=== PATIENT | female | born 1975 | race Caucasian/White ===

== ENCOUNTER 2021-08-16 09:13 | Outpatient (REF) | payer MEDICARE, SELFPAY ==
--- NOTE | ~2021-08-16 | MM_ITS ---
EXAMINATION: MM SCREENING DIGITAL BREAST TOMOSYNTHESIS, BILATERAL CLINICAL INFORMATION: Screening. Asymptomatic. The lifetime risk of breast cancer based on the Tyrer-Cuzick Model is 10%. COMPARISON: Mammography: 06/15/2017, 05/02/2016, 04/17/2016 (baseline) TECHNIQUE: Digital breast tomosynthesis is performed in both the craniocaudal and mediolateral oblique views along with computer-aided detection (CAD). Synthesized 2D images are generated from the tomosynthesis. FINDINGS: There are scattered areas of fibroglandular density (ACR BI-RADS breast composition Category b). There are no significant masses, abnormal calcifications, or other abnormalities. Parenchymal pattern is similar to prior studies. There are no significant changes. MM/MM tomosynthesis screening BI IMPRESSION: No mammographic evidence of malignancy. ASSESSMENT: BI-RADS 1: Negative RECOMMENDATION: Routine annual mammography screening. This patient's information was entered into a reminder system with a target due date for their next mammogram.
== END 2021-08-16 09:14 | disposition home or self-care (01) ==
LOC: HO.MAMMO 09:13
PROVIDERS: PCP Nurse Practitioner Family; Visit Provider Nurse Practitioner Family
DX: Z12.31 Encounter for screening mammogram for malignant neoplasm of breast (principal)
CPT/HCPCS: 77063; 77067

== ENCOUNTER 2022-08-22 09:47 | Outpatient (REF) | payer MEDICARE, SELFPAY ==
--- NOTE | ~2022-08-22 | MM_ITS ---
EXAMINATION: MM SCREENING DIGITAL BREAST TOMOSYNTHESIS, BILATERAL CLINICAL INFORMATION: Screening. Asymptomatic. The lifetime risk of breast cancer based on the Tyrer-Cuzick Model is 11%. COMPARISON: Mammography: 08/16/2021, 06/15/2017, 05/02/2016, 04/17/2016 (baseline). TECHNIQUE: Digital breast tomosynthesis is performed in both the craniocaudal and mediolateral oblique views along with computer-aided detection (CAD). Synthesized 2D images are generated from the tomosynthesis. FINDINGS: There are scattered areas of fibroglandular density (ACR BI-RADS breast composition Category b). There are no significant masses, abnormal calcifications, or other abnormalities. Parenchymal pattern is similar to prior studies. There is no developing density or architectural abnormality. The axilla and skin contours are unremarkable. No significant changes. MM/MM tomosynthesis screening BI IMPRESSION: No mammographic evidence of malignancy. ASSESSMENT: BI-RADS 1: Negative RECOMMENDATION: Routine annual mammography screening. This patient's information was entered into a reminder system with a target due date for their next mammogram.
== END 2022-08-22 09:48 | disposition home or self-care (01) ==
LOC: HO.MAMMO 09:47
PROVIDERS: PCP Nurse Practitioner Family; Visit Provider Nurse Practitioner Family
DX: Z12.31 Encounter for screening mammogram for malignant neoplasm of breast (principal)
CPT/HCPCS: 77063; 77067

== ENCOUNTER 2023-08-24 08:54 | Outpatient (REF) | payer OTHER, SELFPAY | END 2023-08-24 08:55 | disposition home or self-care (01) | LOC: HO.MAMMO 08:54 | PROVIDERS: PCP Nurse Practitioner Family; Visit Provider Nurse Practitioner Family | DX: Z12.31 Encounter for screening mammogram for malignant neoplasm of breast (principal) | CPT/HCPCS: 77063; 77067 ==

== ENCOUNTER → 2023-08-24 09:45 | Outpatient (BNV) | payer OTHER, SELFPAY | PROVIDERS: PCP Nurse Practitioner Family; Visit Provider Radiology Diagnostic Radiology | DX: Z12.31 Encounter for screening mammogram for malignant neoplasm of breast (principal) | CPT/HCPCS: 77063; 77067 ==

== ENCOUNTER 2024-08-27 08:18 | Outpatient (REF) | payer OTHER, SELFPAY ==
--- OUTSIDE RECORDS SUMMARY | 2024-08-27 08:40 | XMS_ITS | Clinical Summary ---
Author Organization [facility] Address [address] [place] [address] Care Team Providers Care Supervisor Prop Making Name Role Phone Maria Elena Bender NP Primary Care Provider [phone] Allergies No known active allergies Medications Medication Sig Dispensed Refills Start Date End Date Status aspirin 81 MG chewable tablet Chew 1 tablet (81 mg total) by mouth daily. 30 tablet 0 08/22/2023 Active atorvastatin (LIPITOR) tablet 80 mg Take 1 tablet (80 mg total) by mouth every evening. 30 tablet 0 08/21/2023 Active Semaglutide, 1 MG/DOSE, (Ozempic, 1 MG/DOSE,) 2 MG/1.5ML SOPN Inject 1 mg under the skin once a week. 0 Active metFORMIN (GLUCOPHAGE) tablet 500 mg Take 2 tablets (1,000 mg total) by mouth 2 (two) times a day with meals. 0 Active Active Problems Problem Noted Date Diagnosed Date Acute stroke due to ischemia 08/19/2023 Social History Tobacco Use Types Packs/Day Years Used Date Smoking Tobacco: Unknown Sex and Gender Information Value Date Recorded Sex Assigned at Female 08/19/2023 6:29 PM EST Gender Identity Not on file Sexual Orientation Not on file Job Start Date Occupation Industry Not on file Not on file Not on file Last Filed Vital Signs Vital Sign Reading Time Taken Comments Blood Pressure 128/83 10/23/2023 1:38 PM EDT Pulse 82 10/23/2023 1:38 PM EDT Temperature 36.3 ??C (97.4 ??F) 08/21/2023 3:00 PM ES T Respiratory Rate 13 10/23/2023 1:38 PM EDT Oxygen Saturation 98% 10/23/2023 1:38 PM EDT Inhaled Oxygen Concentration - - Weight 73.9 kg (163 lb) 10/23/2023 1:38 PM EDT Height 157.5 cm (5' 2 ) 10/23/2023 1:38 PM EDT Body Mass Index 29.81 10/23/2023 1:38 PM EDT Plan of Treatment Health Maintenance Due Date Last Done Comments Hepatitis B Vaccines (1 of 3 - 3-dose series) 1975 Hepatitis C Screening 1975 COVID-19 Vaccine (#1) 1975 Depression Screening 1987 Preventative Health Evaluation 1993 DTap / Tdap / Td (1 - Tdap) 1994 Cervical Cancer Screening (Pap Smear) 01/07/1996 Colon Cancer Screening (Colonoscopy) 01/07/2020 Influenza Vaccine (#1) 2024 2, 06/22/2021, 04/19/2020, Additional history exists BMI Counseling 12/24/2024 12/25/2023, 10/19/2023 Pneumococcal Vaccine Aged Out 11/08/2022, 07/01/19 21 No longer eligible based on patient's age to complete this topic RSV Ped < 20 months Aged Out No longe r eligible based on patient's age to complete this topic Advance Directives For more information, please contact: [phone] Latest Code Status on File Code Status Date Activated Date Inactivated Comments Full Code 08/20/2023 7:52 AM 08/21/2023 10:30 PM This c ode status was ascertained in the following way: discussion with patient . Care Teams Supervisor Prop Making Relationship Specialty Start Date End Date Maria Elena Bender NP [facility] Sergio Renteria Patrick [address] [facility] [place] [id number] PCP - General Family Medicine 08/21/23
--- OUTSIDE RECORDS SUMMARY | 2024-08-27 08:40 | XMS_ITS | Clinical Summary ---
Author Organization [facility] ity Address [id number] [place] [id number] Care Team Providers Care Automotive Repair Technician Name Role Phone Maria Elena Bender NP Primary Care Provider [phone] Social History Tobacco Use Types Packs/Day Years Used Date Smoking Tobacco: Unknown Comments Unknown Sex and Gender Information Value Date Recorded Sex Assigned at Not on file Legal Sex Female 12:43 AM EST Gender Identity Not on file Sexual Orientation Not on file Obstetrics History Last Filed Vital Signs Vital Sign Reading Time Taken Comments Blood Pressure 128/83 10/23/2023 1:38 PM EDT Sit ting Left arm Pulse 82 10/23/2023 1:38 PM EDT Temperature - - Respiratory Rate - - Oxygen Saturation - - Inhaled Oxygen Concentration - - Weight 73.9 kg (163 lb) 10/23/2023 1:38 PM EDT Height 157.5 cm (5' 2 ) 10/23/2023 1:38 PM EDT Body Mass Index 29.81 10/23/2023 1:38 PM EDT Plan of Treatment Health Maintenance Due Date Last Done Comments Breast Cancer Screening 1975 DTaP,Tdap,and Td Vaccines (1 - Tdap) 1994 Hepatitis B Vaccines (1 of 3 - 19+ 3-dose series) 1994 Cervical Cancer Screening: P ap Smear 01/07/1996 Colorectal Cancer Screening: Colonoscopy 01/15/2024 Depression Screening 01/15/2024 HIV Screening 01/15/2024 Hepatitis C Screening 01/15/2024 Social Influencers of Health Screening 01/15/2024 COVID-19 Vaccine (1 - 2023-2 5 season) 2024 Influenza Vaccine (#1) 2024 , 05/17/2014 Cholesterol Screening (Lipid Panel) 08/19/2028 08/20/2023 HIB Vaccines Aged Out No longer eligi ble based on patient's age to complete this topic HPV Vaccines Aged Out No longer eligi ble based on patient's age to complete this topic Hepatitis A Vaccines Aged Out No long er eligible based on patient's age to complete this topic IPV Vaccines Aged Out No longer eligi ble based on patient's age to complete this topic MMR Vaccines Aged Out No longer eligi ble based on patient's age to complete this topic Meningococcal ACWY Vaccine Aged Out N o longer eligible based on patient's age to complete this topic Meningococcal B Vacine Aged Out No lo nger eligible based on patient's age to complete this topic Pneumococcal Vaccine: Pediatrics (0 to 5 Years) and At-Risk Patients (6 to 64 Years) Aged Out No longer eligible b ased on patient's age to complete this topic RSV Immunization Patients Under 20 months Aged Out No longer eligible b ased on patient's age to complete this topic Varicella Vaccines Aged Out No longer eligible based on patient's age to complete this topic Care Teams Automotive Repair Technician Relationship Specialty Start Date End Date Maria Elena Bender NP [facility] [address] [facility] [place] [facility] [place] [phone] PCP - General 08/21/23
--- OUTSIDE RECORDS SUMMARY | 2024-08-27 08:40 | XMS_ITS ---
Author Name [facility] Organization Unknown Results Test Name/Text Value Interpretation Date Range Source VISCOSITY 1.7 Normal [id number] [facility] CARDIOLIPIN AB,IGM 1.1 Normal [id number] [facility] CARDIOLIPIN AB,IGG 1.1 Normal [id number] [facility] BETA-2 GP1,IGM AB 2.7 Normal [id number] [facility] BETA-2 GP1,IGG AB 1.9 Normal [id number] [facility] DRVVT CONFIRMATION NA Normal [id number] [facility] aPTT Hex PL PPP NA Normal [id number] C [facility] Screen aPTT 52 Above high normal [id number] [facility] DILUTE XIAO VIPER VENOM 31 Normal [id number] [facility] Confirm aPTT StaClot 39 Normal [id number] [facility] Hgb F MFr Bld HPLC 0% Normal [id number] [facility] HGB S MFR BLD ELPH 0% Normal [id number] [facility] HGB A MFR BLD ELPH 60.1% Below low normal [id number] [facility] Hgb A2 MFr Bld HPLC 3.4% Above high normal [id number] [facility] HGB C MFR BLD ELPH 36.5% Above high normal [id number] [facility] ALBUMIN % 55.6 Normal [id number] [facility] GAMMA % 19.1 Normal [id number] [facility] GAMMA G/DL 1.5 Above high normal [id number] [facility] ALPHA 2 % 9.1 Normal [id number] [facility] BETA G/DL 1 Normal [id number] [facility] ALPHA 1 % 3.4 Normal [id number] [facility] ALPHA 2 G/DL 0.7 Normal [id number] [facility] ALPHA 1 G/DL 0.3 Normal [id number] [facility] TOTAL PROTEIN 8 Normal [id number] [facility] ALBUMIN G/DL 4.4 Normal [id number] [facility] BETA % 12.8 Normal [id number] [facility] Free [place] Light Chains 3.48 Above high normal [id number] [facility] Free Lambda Light Chains 2.2 Normal [id number] [facility] K/L FLC Ratio 1.58 Normal [id number] [facility] Prot S Act/Nor PPP 67 Normal [id number] [facility] IGM SER MCNC 137mg/dL Normal [id number] 45 - 281 [facility] IGG SERPL-MCNC 1477mg/dL Normal [id number] 635 - 1741 C [facility] IGA SERPL-MCNC 327mg/dL Normal [id number] 66 - 433 [facility] BETA-2 GP1,IGA AB 7.6 Above high normal [id number] [facility] BETA-2 GP1,IGM AB 2.7 Normal [id number] [facility] BETA-2 GP1,IGG AB 1.7 Normal [id number] [facility] CARDIOLIPIN AB,IGA 3.1 Normal [id number] [facility] DRVVT CONFIRMATION NA Normal [id number] [facility] aPTT Hex PL PPP NA Normal [id number] C [facility] Screen aPTT 44 Above high normal [id number] [facility] DILUTE XIAO VIPER VENOM 33 Normal [id number] [facility] Confirm aPTT StaClot 38 Normal [id number] [facility] AT III ACT/NOR PPP HYDROELECTRIC COMPONENT MACHINIST 97 Normal [id number] [facility] Prot S Act/Nor PPP 54 Below low normal [id number] [facility] PROTEIN C (ACTIVITY) 104 Normal [id number] [facility] GLUCOSE BLDC GLUCOMTR MCNC 176mg/dL Normal [id number] 70 - 199 [facility] CREAT SERPL MCNC 0.5mg/dL Normal [id number] 0.5 - 1 [facility] SODIUM SERPL SCNC 136mmol/L Normal [id number] 135 - 145 [facility] GLUCOSE SERPL MCNC 180mg/dL Normal [id number] 70 - 199 [facility] Glomerular filtration rate/1.73 sq M. predicted 116 Normal 60 - [facility] CHLORIDE SERPL SCNC 103mmol/L Normal 98 - 10 7 [facility] HCO3 SER SCNC 24mmol/L Normal 24 - 32 [facility] POTASSIUM SERPL SCNC 3.8mmol/L Normal 3.5 - 5.1 [facility] ANION GAP SERPL SCNC 9mmol/L Normal 5 - 14 [facility] BUN SERPL MCNC 7mg/dL Normal 7 - 17 [facility] CALCIUM SERPL MCNC 9mg/dL Normal 8.4 - 10 .2 [facility] PHOSPHATE SERPL MCNC 3.2mg/dL Normal 2.5 - 4.5 [facility] MAGNESIUM SERPL MCNC 1.7mg/dL Normal 1.7 - 2.8 [facility] DIFFERENTIAL TYPE AUTOMATED Normal [facility] NEUTROPHILS NFR BLD AUTO 56.3% Normal 44 - 74 [facility] BASOPHILS NFR BLD AUTO 0.5% Normal 0 - 2 [facility] MONOCYTES NFR BLD AUTO 8% Normal 2 - 12 [facility] HCT VFR BLD AUTO 40.4% Normal 37 - 47 [facility] MONOCYTES NO. BLD AUTO 0.7K/uL Normal 0 - 0.8 [facility] RDW RBC AUTO RTO 13.6% Normal 12.1 - 16. 2 [facility] PLATELET NO. BLD AUTO 297K/uL Normal 150 - 450 [facility] EOSINOPHIL NO. BLD AUTO 0.3K/uL Normal 0 - 0.5 [facility] RBC NO. BLD AUTO 4.88M/uL Normal 4.2 - 5.4 [facility] MCH RBC QN AUTO 29.1pg Normal 25 - 33 C [facility] MCHC RBC AUTO MCNC 35.2g/dL Normal 32 - 36 [facility] HGB BLD MCNC 14.2g/dL Normal [id number] 12.5 - 16 [facility] BASOPHILS IN BLOOD BY AUTOMATED COUNT 0K/uL Normal [id number] 0 - 0.2 [facility] WBC NO. BLD AUTO 8.9K/uL Normal [id number] 4 - 10.5 [facility] EOSINOPHIL NFR BLD AUTO 3.2% Normal [id number] 0 - 6 [facility] LYMPHOCYTES NFR BLD AUTO 32% Normal [id number] 20 - 48 [facility] MCV RBC AUTO 82.7fL Normal [id number] 78 - 100 [facility] NEUTROPHILS NO. BLD AUTO 5K/uL Normal [id number] 1.8 - 7.8 [facility] LYMPHOCYTES NO. BLD AUTO 2.8K/uL Normal [id number] 1 - 3.2 [facility] PMV BLD AUTO 8.5fL Normal [id number] 7.4 - 11.4 [facility] GLUCOSE BLDC GLUCOMTR MCNC 171mg/dL Normal [id number] 70 - 199 [facility] GLUCOSE BLDC GLUCOMTR MCNC 242mg/dL Above high normal [id number] 70 - 199 [facility] GLUCOSE BLDC GLUCOMTR MCNC 172mg/dL Normal [id number] 70 - 199 [facility] Hgb A1c MFr Bld HPLC 7.7% Above high normal [id number] 6 - 5.7 [facility] FACT VIII ACT/NOR PPP 118 Normal [id number] 60 - 150 [facility] GLUCOSE BLDC GLUCOMTR MCNC 198mg/dL Normal [id number] 70 - 199 [facility] LDLc SerPl Calc-mCnc 101mg/dL Normal [id number] 50 - 1 30 [facility] TRIGL SERPL-MCNC 122mg/dL Normal [id number] - 150 [facility] CHOLEST SERPL-MCNC 160mg/dL Normal [id number] 0 - 200 [facility] HDLC SERPL-MCNC 35mg/dL Normal [id number] 35 - 88 C [facility] PHOSPHATE SERPL MCNC 3.6mg/dL Normal [id number] 2.5 - 4.5 [facility] MAGNESIUM SERPL MCNC 1.6mg/dL Below low normal [id number] 1.7 - 2.8 [facility] CREAT SERPL MCNC 0.5mg/dL Normal [id number] 0.5 - 1 [facility] SODIUM SERPL SCNC 137mmol/L Normal [id number] 135 - 145 [facility] GLUCOSE SERPL MCNC 179mg/dL Normal [id number] 70 - 199 [facility] Glomerular filtration rate/1.73 sq M. predicted 116 Normal [id number] 60 - [facility] CHLORIDE SERPL SCNC 103mmol/L Normal [id number] 98 - 10 7 [facility] HCO3 SER SCNC 24mmol/L Normal [id number] 24 - 32 [facility] POTASSIUM SERPL SCNC 3.5mmol/L Normal [id number] 3.5 - 5.1 [facility] ANION GAP SERPL SCNC 10mmol/L Normal [id number] 5 - 14 [facility] BUN SERPL MCNC 7mg/dL Normal [id number] 7 - 17 [facility] CALCIUM SERPL MCNC 9.3mg/dL Normal [id number] 8.4 - 10 .2 [facility] Hgb A1c MFr Bld HPLC 7.6% Above high normal [id number] 6 - 5.7 [facility] FIBRINOGEN PPP-MCNC 305mg/dL Normal [id number] 145 - 4 15 [facility] APTT TIME PPP 32sec Normal [id number] 25 - 37 [facility] RBC NO. BLD AUTO 4.67M/uL Normal [id number] 4.2 - 5.4 [facility] MCH RBC QN AUTO 29.5pg Normal [id number] 25 - 33 C [facility] MCHC RBC AUTO MCNC 35.5g/dL Normal [id number] 32 - 36 [facility] HGB BLD MCNC 13.8g/dL Normal [id number] 12.5 - 16 [facility] WBC NO. BLD AUTO 8.7K/uL Normal [id number] 4 - 10.5 [facility] HCT VFR BLD AUTO 38.8% Normal [id number] 37 - 47 [facility] MCV RBC AUTO 83.1fL Normal [id number] 78 - 100 [facility] RDW RBC AUTO RTO 13.4% Normal [id number] 12.1 - 16. 2 [facility] PLATELET NO. BLD AUTO 296K/uL Normal [id number] 150 - 450 [facility] PMV BLD AUTO 8.6fL Normal [id number] 7.4 - 11.4 [facility] GLUCOSE BLDC GLUCOMTR MCNC 187mg/dL Normal [id number] 70 - 199 [facility] Amphet Ur Ql Scn NEGATIVE Normal [id number] - [facility] Barbiturates Ur Ql Scn NEGATIVE Normal [id number] - [facility] Opiates Ur Ql Scn NEGATIVE Normal [id number] - [facility] Oxycodone Ur Ql Scn NEGATIVE Normal [id number] - [facility] PCP Ur Ql Scn NEGATIVE Normal [id number] - [facility] BZE Ur Ql Scn NEGATIVE Normal [id number] - [facility] Cannabinoids Ur Ql Scn NEGATIVE Normal [id number] - [facility] GLUCOSE BLDC GLUCOMTR MCNC 175mg/dL Normal [id number] 70 - 199 [facility] CREAT SERPL MCNC 0.4mg/dL Below low normal [id number] 0.5 - 1 [facility] BILIRUB SERPL MCNC 0.6mg/dL Normal [id number] 0.3 - 1 [facility] AST SERPL CCNC 14U/L Normal [id number] 5 - 40 [facility] HCO3 SER SCNC 25mmol/L Normal [id number] 24 - 32 [facility] POTASSIUM SERPL SCNC 3.3mmol/L Below low normal [id number] 3.5 - 5.1 [facility] ANION GAP SERPL SCNC 10mmol/L Normal [id number] 5 - 14 [facility] PROT SERPL MCNC 6.9g/dL Normal [id number] 6.4 - 8.5 C [facility] CALCIUM SERPL MCNC 9.7mg/dL Normal [id number] 8.4 - 10 .2 [facility] ALP SERPL-CCNC 53U/L Normal [id number] 34 - 104 [facility] SODIUM SERPL SCNC 134mmol/L Below low normal [id number] 13 5 - 145 [facility] GLUCOSE P FAST SERPL MCNC 161mg/dL Above high normal [id number] 70 - 99 [facility] ALBUMIN SERPL BCG MCNC 4.1g/dL Normal [id number] 3.5 - 5 [facility] CHLORIDE SERPL SCNC 99mmol/L Normal [id number] 98 - 10 7 [facility] ALT SERPL CCNC 28U/L Normal [id number] 7 - 52 [facility] BUN SERPL MCNC 5mg/dL Below low normal [id number] 7 - 1 7 [facility] PT TIME PPP 12sec Normal [id number] 10.5 - 13.3 [facility] INR PPP 1 Normal [id number] 0.8 - 1.1 [facility] AN DIFFERENTIAL TYPE AUTOMATED Normal [id number] [facility] NEUTROPHILS NFR BLD AUTO 55.3% Normal [id number] 44 - 74 [facility] BASOPHILS NFR BLD AUTO 0.6% Normal [id number] 0 - 2 [facility] MONOCYTES NFR BLD AUTO 6.7% Normal [id number] 2 - 12 [facility] HCT VFR BLD AUTO 40.4% Normal [id number] 37 - 47 [facility] MONOCYTES NO. BLD AUTO 0.7K/uL Normal [id number] 0 - 0.8 [facility] RDW RBC AUTO RTO 13.5% Normal [id number] 12.1 - 16. 2 [facility] PLATELET NO. BLD AUTO 311K/uL Normal [id number] 150 - 450 [facility] EOSINOPHIL NO. BLD AUTO 0.3K/uL Normal [id number] 0 - 0.5 [facility] RBC NO. BLD AUTO 4.8M/uL Normal [id number] 4.2 - 5.4 [facility] MCH RBC QN AUTO 29.2pg Normal [id number] 25 - 33 C [facility] MCHC RBC AUTO MCNC 34.7g/dL Normal [id number] 32 - 36 [facility] HGB BLD MCNC 14g/dL Normal [id number] 12.5 - 16 [facility] BASOPHILS IN BLOOD BY AUTOMATED COUNT 0.1K/uL Normal 0 - 0.2 [facility] WBC NO. BLD AUTO 10.8K/uL Above high normal 4 - 10.5 [facility] EOSINOPHIL NFR BLD AUTO 2.7% Normal 0 - 6 [facility] LYMPHOCYTES NFR BLD AUTO 34.7% Normal 20 - 48 [facility] MCV RBC AUTO 84.1fL Normal 78 - 100 [facility] NEUTROPHILS NO. BLD AUTO 6K/uL Normal [id number] 1.8 - 7.8 [facility] LYMPHOCYTES NO. BLD AUTO 3.7K/uL Above high normal 1 - 3.2 [facility] PMV BLD AUTO 8.6fL Normal 7.4 - 11.4 [facility] GLUCOSE BLDC GLUCOMTR MCNC 161mg/dL Normal 70 - 199 [facility] History of Medication Use Medication Directions Dispensed Refills Start Date End Date Stat atorvastatin (LIPITOR) tablet 80 mg Take 1 tablet (80 mg total) by mouth every evening. 08/21/2023 active magnesium sulfate 2 g/50ml IVPB Premix 2 g, Intravenous, at 50 mL/hr, Once, On Sun08/20/23 at 1100, For 1 dose 08/20/2023 completed insulin regular 100 UNIT/ML injection 1-6 Units 1-6 Units, Subcutaneous, 4 times daily after meals and at bedtime, First dose (after last modification) on Sun08/20/23 at 0900LOW CORRECTIONAL DOSE?(Elderly or insulin sensitive patient or ??insulin TDD is less than 43 units )?? 08/20/2023 active atorvastatin (LIPITOR) tablet 80 mg Take 1 tablet (80 mg total) by mouth every evening. 08/19/2023 active bisacodyl (DULCOLAX) suppository 10 mg 10 mg, Rectal, Daily as needed, constipation, [place] [address]/19/2023 active metFORMIN (GLUCOPHAGE) tablet 500 mg Take 2 tablets (1,000 mg total) by mouth 2 (two) times a day with meals. active acetaminophen (TYLENOL) tablet 650 mg 650 mg, Oral, Every 6 hours PRN, mild pain (1-3), moderate pain (4-6), headaches, fever, [place] [address]/19/2023 active Semaglutide, 1 MG/DOSE, (Ozempic, 1 MG/DOSE,) 2 MG/1.5ML SOPN Inject 1 mg under the skin once a week. active metFORMIN (GLUCOPHAGE) tablet 500 mg Take 2 tablets (1,000 mg total) by mouth 2 (two) times a day with meals. active Problems Problem Status Onset Date Problem Type Date of Resoluti on Source Acute stroke due to ischemia active 2023-08-19 ProblemAct [facility] Encounters Encounter Type Encounter Reason Primary Diagnosis Location Date Ambulatory [facility] [place] 12/25/2023 Ambulatory Cerebral infarction, unspecified Cerebral infarction, unspecified [facility] [place] 10/19/2023 Ambulatory Cerebral infarction, unspecified Cerebral infarction, unspecified [facility] [place] 08/21/2023 Inpatient Cerebral infarction, unspecified Cerebral infarction, unspecified [facility] [place] 08/19/2023 Care Team Organization Name Specialty Phone Email Start Date End Da glory [facility] ROSARIO ALEXANDER Primary Care 08/27/2023 [facility] [place] 4 [facility] 4
== END 2024-08-27 08:19 | disposition home or self-care (01) ==
LOC: HO.MAMMO 08:18
PROVIDERS: Visit Provider Nurse Practitioner Family
DX: Z12.31 Encounter for screening mammogram for malignant neoplasm of breast (principal)
CPT/HCPCS: 77063; 77067

== ENCOUNTER → 2024-08-27 09:00 | Outpatient (BNV) | payer OTHER, SELFPAY | PROVIDERS: Visit Provider Internal Medicine | DX: Z12.31 Encounter for screening mammogram for malignant neoplasm of breast (principal) | CPT/HCPCS: 77063; 77067 ==